=== PATIENT | female | born 1995 | race Caucasian/White ===

== ENCOUNTER → 2019-04-17 09:07 | Outpatient (CLI) | payer OTHER, SELFPAY ==
--- NOTE | ~2019-04-17 | MR_ITS ---
EXAMINATION: MR pelvis wo con DATE: 04/17/2019 09:54 INDICATION: Low back pain. Sacroiliitis. TECHNIQUE: Magnetic resonance imaging (MRI) of the pelvis was performed without intravenous contrast. Sequences included coronal oblique (coronal to sacrum) T1-weighted FSE and T2-weighted FS FSE, axial oblique (axial to sacrum) T1-weighted FSE and T2-weighted FS FSE, sagittal PD-weighted FSE, axial an d coronal T2-weighted FS FSE, and axial T1-weighted FSE. COMPARISON: Lumbar spine radiographs 10/02/2016 FINDINGS: Bone alignment is normal. No fracture. There is mild lumbar spondylosis. The sacroiliac joints are no rmal. No evidence of inflammatory arthropathy. IMPRESSION: 1. Normal sacroiliac joints. Reviewed, dictated and finalized at location A. [employer]
== END ==
PROVIDERS: PCP Family Medicine; Visit Provider Pediatrics Sports Medicine
DX: M54.5 Low back pain (principal)
CPT/HCPCS: 72195

== ENCOUNTER 2021-03-08 10:01 | Emergency (ER) | payer OTHER, SELFPAY ==
[2021-03-08 10:07] VITALS: BP 103/58; PULSE 81; RESP 16; TEMP 36.9; O2SAT 97
--- NOTE | 2021-03-08 10:21 | ED.GENADULT ---
HPI - General Adult General Chief complaint: Upper Respiratory Infection Stated complaint: sore throat,cough Source: patient Mode of arrival: ambulatory Limitations: no limitations History of Present Illness HPI narrative: Patient presents for evaluation of sore throat and cough for the last 3 days. She indicates her cough is productive but she is not visualized a sputum to know what color it is. She denies any shortness of breath, fever, nausea, vomiting, diarrhea. She has experienced chills. She is visiting her family in the area for the holidays. She lives in [place]. Her niece and nephew with whom she spent time over the holidays both have some residual symptoms from a viral illness. She does not smoke. She had COVID in March 2019. She has received both doses of her COVID vaccination and has also received a booster. She has tried cough drops and ibuprofen with some improvement in her symptoms thereafter. Related Data Allergies Allergy/AdvReac Type Severity Reaction Status Date / Time No Known Allergies Allergy Mild Verified 03/08/21 10:07 Review of Systems Review of Systems: CONSTITUTIONAL: Reports chills. Denies fever or sweats. EYES: Denies visual changes, redness, or discharge. ENT: Reports sore throat. Denies sinus congestion and drainage CARDIOVASCULAR: Denies chest pain, palpitations, or edema. RESPIRATORY: Reports cough. Denies SOB GASTROINTESTINAL: Denies abdominal pain, nausea, vomiting, or diarrhea. GENITOURINARY: Denies dysuria or hematuria. SKIN: Denies rash or itching. MUSCULOSKELETAL: Denies back pain, joint pain, or myalgia. NEUROLOGIC: Denies headache, numbness, dizziness, or weakness. PSYCHIATRIC: Denies anxiety or depression. 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 Mitral valve prolapse Sacroiliac joint dysfunction of both sides Surgical History Surgical History No pertinent past surgical history Family History Family History Father Family history of cardiovascular disease Family history of coronary artery disease Mother Family history of cardiovascular disease Social History Social History Smoking status: Never smoker Alcohol intake: current Alcohol use details: social Substance use: never Substance use type: does not use Living arrangements: with roommate(s) Gender identity (if verbalized by the patient): Female Sexual Orientation (if Verbalized by the Patient): Straight or Heterosexual Spiritual care concerns: No Exam Narrative: GENERAL: Well-appearing, well-nourished, and in no acute distress. HEAD: Normocephalic, atraumatic. EYES: PERRLA and EOMI. ENT: Nares clear, no rhinorrhea or epistaxis. Mucous membranes moist. Oropharynx without tonsillar hypertrophy exudate or other lesions. Bilateral TMs pearly alfred nonbulging NECK: Supple. No adenopathy or masses. No carotid bruits or JVD CHEST: Clear to auscultation. No respiratory distress. No wheezes rales or rhonchi HEART: Regular rate and rhythm. No murmur heard. Normal peripheral pulses. ABDOMEN: Soft, nontender, nondistended, normal active bowel sounds. EXTREMITIES: Normal range of motion. No edema. SKIN: Warm, dry, no rash. NEURO: No focal deficits. Alert and oriented x3. PSYCH: Normal mood and affect. Course Course Emergency Course: This is a 26-year-old female who presented with complaints of cough and sore throat. Strep was negative. Rapid Covid was negative. PCR was obtained. Will treat with amoxicillin in event that her strep was false negative. She is driving back to [place] and it may be challenging for her to get in to see a prov
== END 2021-03-08 10:50 | disposition home or self-care (01) ==
PROVIDERS: Emergency Provider Nurse Practitioner; PCP Family Medicine
DX: J02.9 Acute pharyngitis, unspecified (principal); Z20.822 Contact with and (suspected) exposure to COVID-19; I34.1 Nonrheumatic mitral (valve) prolapse
CPT/HCPCS: 87081; 87426; 87880; 99213; C9803; G0463